=== PATIENT | female | born 1995 | race Caucasian/White ===

== ENCOUNTER 2017-01-29 06:18 | Emergency (ER) | payer BC ==
[2017-01-29 06:28] VITALS: TEMP 98.1
[2017-01-29] MEDS ORDERED: ERTAPENEM 1 GM in NS 100 ML IV ONE (06:37)
[2017-01-29] MEDS ORDERED: KETOROLAC 15 MG/1 ML SDV IVP ONE (06:49)
--- NOTE | 2017-01-29 06:53 | EDPHY ---
H & P Stated Complaint: R hand dog bite Time Seen by Provider: 01/29/17 06:32 HPI/ROS: HPI The patient presents with dog bite to right hand, sustained yesterday. This is an unknown dog that became aggressive with her and bit her several times to her right hand. She went to [facility], a 1 and 0.5 cm wound in between her thumb and index finger was sutured. She was started on Augmentin and has had 1 dose. She slept overnight however awoke this morning with worsening pain of her right hand. The pain is achy, constant, moderate in severity. She denies any fevers or chills. REVIEW OF SYSTEMS Constitutional: No fever, no chills. Eyes: No discharge. ENT: No sore throat. Cardiovascular: No chest pain, no palpitations. Respiratory: No cough, no shortness of breath. Gastrointestinal: No abdominal pain, no vomiting. Genitourinary: No hematuria. Musculoskeletal: No back pain. Skin: No rashes. Neurological: No headache. PMHx: Healthy PHYSICAL General Appearance: Alert, anxious and upset Eyes: Pupils equal and round no pallor or injection ENT, Mouth: Mucous membranes moist Respiratory: Breathing comfortably Neurological: A&O, moves all extremities Skin: Warm and dry, no rashes Musculoskeletal: Neck is supple non tender Extremities: Right hand with 1.5 cm laceration on the dorsal aspect between the 1st and 2nd digits with 4 simple interrupted sutures in place with surrounding erythema, warmth, tenderness, measuring about 4 cm in diameter, there is a 2nd superficial laceration between the 3rd and 4th digits in the web space with small amount of erythema, there are no areas of fluctuance Psychiatric: Patient is oriented X 3, there is no agitation Source: Patient Exam Limitations: No limitations - Personal History LMP (Females 10-55): 22-28 Days Ago Current Tetanus/Diphtheria Vaccine: Unsure Current Tetanus Diphtheria and Acellular Pertussis (TDAP): Unsure - Medical/Surgical History Hx Asthma: No Hx Chronic Respiratory Disease: No Hx Diabetes: No Hx Cardiac Disease: No Hx Renal Disease: No Hx Cirrhosis: No Hx Alcoholism: No Hx HIV/AIDS: No Hx Splenectomy or Spleen Trauma: No Other PMH: Depression, anxiety, - Social History Smoking Status: Former smoker Constitutional: Initial Vital Signs Temperature (C) 36.7 C 01/29/17 06:25 Heart Rate 122 H 01/29/17 06:25 Respiratory Rate 22 H 01/29/17 06:25 Blood Pressure 123/75 H 01/29/17 06:25 O2 Sat (%) 97 01/29/17 06:25 O2 Delivery Mode Room Air Allergies/Adverse Reactions: No Known Allergies Allergy (Unverified 01/29/17 06:24) Home Medications: Medication Instructions Recorded Amox Tr/Potassium Clavulanate 01/29/17 Bcp 01/29/17 Lexapro 01/29/17 Medical Decision Making Differential Diagnosis: 21-year-old female who sustained a dog bite to her right hand yesterday and was subsequently seen at urgent care with laceration repair with sutures now presents with redness and swelling of her right hand. There is no area of fluctuance. In the emergency department, sutures were removed, I was unable to express any pus under this sutures. She was given a dose of ertapenem as well as Toradol for pain. We circled the area of redness. I have advised that she continue taking the Augmentin as prescribed. I have given her follow-up with the hand surgeon for recheck in 1-2 days. I feel she likely has a cellulitis of her hand without any abscess. He did consider flexor tenosynovitis, however this is on the dorsal aspect of her hand. - Data Points Medications Given: Discontinued Medications Ketorolac Tromethamine (Toradol) 15 mg IVP EDNOW ONE Stop: 01/29/17 06:50 Last Admin: 01/29/17 06:52 Dose: 15 mg Departure - Departure Disposition: Home, Routine, Self-Care Clinical Impression: Dog bite of left hand with infection Qualifiers: Encounter type: initial encounter Qualified Code(s): S61.452A - Open bite of left hand, initial encounter Condition: Good Instructions: Animal Bite (ED), Cellulitis (ED) Additional Instructions: Please use elevation, and ice to help with pain. You can take ibuprofen 400 mg with acetaminophen 650 mg every 6 hours as needed for pain. Please continue to take your Augmentin as prescribed. I have given you information for follow up with the hand specialist if you would like to be re-evaluated. You need to return to the emergency department if the redness spreads any further or you develop a fever or worsening pain. Referrals: Gamaliel Mathias MD [Medical Doctor] - As per Instructions
[2017-01-29] MEDS ORDERED: ONDANSETRON 4 MG/2 ML VIAL IVP ONE (07:11)
[2017-01-29] MEDS ORDERED: HYDROCOD/APAP 5/325 PREPACK#6 BTL TAKEHOME ONE (07:21)
[2017-01-29 07:32] VITALS: BP 130/83; PULSE 77; RESP 18; O2SAT 94
== END 2017-01-29 07:59 | disposition home or self-care (01) ==
DX: S61.452A Open bite of left hand, initial encounter (principal); W54.0XXA Bitten by dog, initial encounter; Z87.891 Personal history of nicotine dependence
CPT/HCPCS: 96365; J1335; J1885; J2405

== ENCOUNTER 2017-02-08 22:26 | Emergency (ER) | payer BC ==
[2017-02-08 22:38] VITALS: TEMP 98.2
[2017-02-08] MEDS ORDERED: ONDANSETRON 4 MG/2 ML VIAL IVP ONE (22:45)
[2017-02-08] MEDS ORDERED: NS 1,000 ML IV ONE (22:45)
--- NOTE | 2017-02-08 22:49 | EDPHY ---
H & P Stated Complaint: N/V/D Time Seen by Provider: 02/08/17 22:37 HPI/ROS: HPI The patient presents with nausea, vomiting, diarrhea which began at about 5:00 p.m. tonight somewhat suddenly. She has said she has had about 20 episodes of nonbloody emesis and about 10 episodes of watery diarrhea. She feels very dehydrated current Jose. Her symptoms have been constant. She is feeling mild abdominal pain. She denies any sick contacts. She was able to snowboard earlier today. Of note I saw her in the emergency department about a week and half ago for a dog bite which was infected. She had follow-up with Hand surgery and they did a debridement in the office. She has just finished a course of Augmentin today.. REVIEW OF SYSTEMS Constitutional: No fever, no chills. Eyes: No discharge. ENT: No sore throat. Cardiovascular: No chest pain, no palpitations. Respiratory: No cough, no shortness of breath. Gastrointestinal: See HPI Genitourinary: No hematuria. Musculoskeletal: No back pain. Skin: No rashes. Neurological: No headache. PMHx: Recent infected dog bite Soc Hx: College student PHYSICAL General Appearance: Alert, hyperventilating and anxious Eyes: Pupils equal and round no pallor or injection ENT, Mouth: Mucous membranes dry Respiratory: There are no retractions, lungs are clear to auscultation Cardiovascular: Regular rate and rhythm Gastrointestinal: Abdomen is soft and non-tender, no masses, bowel sounds normal Neurological: A&O, moves all extremities Skin: Warm and dry, no rashes Musculoskeletal: Neck is supple non tender Extremities: symmetrical, full range of motion Psychiatric: Patient is oriented X 3, there is no agitation Source: Patient Exam Limitations: No limitations - Personal History LMP (Females 10-55): 1-7 Days Ago Current Tetanus/Diphtheria Vaccine: Yes Current Tetanus Diphtheria and Acellular Pertussis (TDAP): Yes - Medical/Surgical History Hx Asthma: No Hx Chronic Respiratory Disease: No Hx Diabetes: No Hx Cardiac Disease: No Hx Renal Disease: No Hx Cirrhosis: No Hx Alcoholism: No Hx HIV/AIDS: No Hx Splenectomy or Spleen Trauma: No Other PMH: Depression, anxiety, - Social History Smoking Status: Former smoker Constitutional: Initial Vital Signs Temperature (C) 36.8 C 02/08/17 22:28 Heart Rate 101 H 02/08/17 22:28 Respiratory Rate 26 H 02/08/17 22:28 Blood Pressure 101/78 02/08/17 22:28 O2 Sat (%) 98 02/08/17 22:28 O2 Delivery Mode Room Air Allergies/Adverse Reactions: No Known Allergies Allergy (Unverified 01/29/17 06:24) Home Medications: Medication Instructions Recorded Amox Tr/Potassium Clavulanate 01/29/17 Bcp 01/29/17 Lexapro 01/29/17 Ondansetron Odt [Zofran Odt 4 mg 4 mg PO Q4 PRN #10 tab 02/09/17 (*)] Medical Decision Making Differential Diagnosis: This is a 21-year-old female who presents with several hours of nausea, vomiting , diarrhea. On exam, she is quite anxious and hyperventilating, she does have dry mucous membranes which raises suspicion for dehydration. Differential diagnosis includes toxin mediated enterocolitis, viral gastroenteritis, gastritis. In the emergency department, patient was given 2 L of IV fluids, Zofran, Ativan for vomiting. She had resolution of her symptoms and was able to tolerate fluids by mouth. Labs were checked and were relatively unremarkable. She will be discharged home, I feel she likely has a viral or toxin mediated illness. - Data Points Laboratory Results: Laboratory Results 02/08/17 22:52 02/08/17 22:52 02/08/17 02/08/17 22:52 22:52 WBC 17.37 10^3/uL H 10^3/uL (3.80-9.50) RBC 5.03 10^6/uL 10^6/uL (4.18-5.33) Hgb 14.9 g/dL g/dL (12.6-16.3) Hct 41.5 % % (38.0-47.0) MCV 82.5 fL fL (81.5-99.8) MCH 29.6 pg pg (27.9-34.1) MCHC 35.9 g/dL g/dL (32.4-36.7) RDW 12.3 % % (11.5-15.2) Plt Count 333 10^3/uL 10^3/uL (150-400) MPV 9.0 fL fL (8.7-11.7) Neut % (Auto) 76.3 % H % (39.3-74.2) Lymph % (Auto) 16.5 % % (15.0-45.0) [place] % (Auto) 6.7 % % (4.5-13.0) Eos % (Auto) 0.1 % L % (0.6-7.6) Baso % (Auto) 0.1 % L % (0.3-1.7) Nucleat RBC Rel Count 0.0 % % (0.0-0.2) Absolute Neuts (auto) 13.24 10^3/uL H 10^3/uL (1.70-6.50) Absolute Lymphs (auto) 2.86 10^3/uL 10^3/uL (1.00-3.00) Absolute Monos (auto) 1.17 10^3/uL H 10^3/uL (0.30-0.80) Absolute Eos (auto) 0.02 10^3/uL L 10^3/uL (0.03-0.40) Absolute Basos (auto) 0.02 10^3/uL 10^3/uL (0.02-0.10) Absolute Nucleated RBC 0.00 10^3/uL 10^3/uL (0-0.01) Immature Gran % 0.3 % % (0.0-1.1) Immature Gran # 0.06 10^3/uL 10^3/uL (0.00-0.10) Sodium 139 mEq/L mEq/L (134-144) Potassium 3.4 mEq/L L mEq/L (3.5-5.2) Chloride 103 mEq/L mEq/L (97-110) Carbon Dioxide 21 mEq/l L mEq/l (22-31) Anion Gap 15 mEq/L mEq/L (8-16) BUN 11 mg/dL mg/dL (7-23) Creatinine 0.7 mg/dL mg/dL (0.6-1.0) Estimated GFR > 60 Glucose 107 mg/dL H mg/dL (70-100) Calcium 10.1 mg/dL mg/dL (8.5-10.4) Total Bilirubin 0.4 mg/dL mg/dL (0.1-1.4) Conjugated Bilirubin 0.0 mg/dL mg/dL (0.0-0.5) Unconjugated Bilirubin 0.4 mg/dL mg/dL (0.0-1.1) AST 31 IU/L IU/L (14-46) ALT 42 IU/L IU/L (9-52) Alkaline Phosphatase 68 IU/L IU/L (38-126) Total Protein 7.4 g/dL g/dL (6.3-8.2) Albumin 4.6 g/dL g/dL (3.5-5.0) Medications Given: Discontinued Medications Sodium Chloride (Ns) 1,000 mls @ 0 mls/hr IV EDNOW ONE; Wide Open PRN Reason: Protocol Stop: 02/08/17 22:46 Last Admin: 02/08/17 22:50 Dose: 1,000 mls Loperamide HCl (Imodium) 2 mg PO EDNOW ONE Stop: 02/09/17 01:40 Last Admin: 02/09/17 01:40 Dose: 2 mg Lorazepam (Ativan Injection) 0.5 mg IVP EDNOW ONE Stop: 02/08/17 23:25 Last Admin: 02/08/17 23:27 Dose: 0.5 mg Ondansetron HCl (Zofran) 4 mg IVP EDNOW ONE Stop: 02/08/17 22:46 Last Admin: 02/08/17 22:51 Dose: 4 mg Ondansetron HCl (Zofran Odt 4 Mg Prepack#2) 1 btl TAKEHOME EDNOW ONE Stop: 02/09/17 00:59 Last Admin: 02/09/17 01:08 Dose: 1 btl Departure - Departure Disposition: Home, Routine, Self-Care Clinical Impression: Nausea vomiting and diarrhea Condition: Good Instructions: Dehydration (ED), Acute Diarrhea (ED) Additional Instructions: Please make sure to drink plenty of fluids. You can return to the emergency department if your worse in any way. Referrals: Carrie Veronica MD [Medical Doctor] - As per Instructions Prescriptions: Ondansetron Odt [Zofran Odt 4 mg (*)] 4 mg PO Q4 PRN #10 tab PRN Reason: Nausea/Vomiting, Can'T Take Po
[2017-02-08 22:58] LABS: % IMMATURE GRANULYOCYTES 0.3 % (0.0-1.1); ABSOLUTE IMMATURE GRANULOCYTES 0.06 10^3/uL (0.00-0.10); ADD DIFF? NO; ADD MORPH? NO; ADD SCAN? NO; ATYPICAL LYMPHOCYTE FLAG 10 (0-99); FRAGMENT RBC FLAG 0 (0-99); HEMATOCRIT 41.5 % (38.0-47.0); HEMOGLOBIN 14.9 g/dL (12.6-16.3); LEFT SHIFT FLG 0 (0-99); LIPEMIA HEMOLYSIS FLAG 90 (0-99); MEAN CELL HEMOGLOBIN 29.6 pg (27.9-34.1); MEAN CELL HEMOGLOBIN CONCENTR. 35.9 g/dL (32.4-36.7); MEAN CELL VOLUME 82.5 fL (81.5-99.8); PLATELET CLUMPS FLAG 10 (0-99); PLATELET COUNT 333 10^3/uL (150-400); RED BLOOD CELL COUNT 5.03 10^6/uL (4.18-5.33); RED CELL DISTRIBUTION WIDTH 12.3 % (11.5-15.2)
[2017-02-08 23:10] LABS: ALANINE AMINOTRANSFERASE 42 IU/L (9-52); ALBUMIN 4.6 g/dL (3.5-5.0); ALKALINE PHOSPHATASE 68 IU/L (38-126); ANION GAP 15 mEq/L (8-16); ASPARTATE AMINOTRANSFERASE 31 IU/L (14-46); BILIRUBIN,TOTAL 0.4 mg/dL (0.1-1.4); BILIRUBIN-UNCONJUGATED 0.4 mg/dL (0.0-1.1); CALCIUM 10.1 mg/dL (8.5-10.4); CARBON DIOXIDE 21 mEq/l (22-31); CHLORIDE 103 mEq/L (97-110); CREATININE 0.7 mg/dL (0.6-1.0); GLOMERULAR FILTRATION RATE > 60; GLUCOSE 107 mg/dL (70-100); POTASSIUM 3.4 mEq/L (3.5-5.2); SODIUM 139 mEq/L (134-144); TOTAL PROTEIN 7.4 g/dL (6.3-8.2)
[2017-02-08] MEDS ORDERED: LORazepam 2 MG/ML INJ IVP ONE (23:24)
[2017-02-08 23:54] VITALS: PULSE 76; RESP 18
[2017-02-09] MEDS ORDERED: ONDANSETRON 4MG PREPACK#2 BTL TAKEHOME ONE (00:58)
[2017-02-09] MEDS ORDERED: LOPERAMIDE HCL 2 MG CAP ONE (01:38)
[2017-02-09] MEDS ORDERED: LOPERAMIDE HCL 2 MG CAP PO ONE (01:39)
[2017-02-09 02:53] VITALS: BP 120/78; O2SAT 96
== END 2017-02-09 01:50 | disposition home or self-care (01) ==
PROC: 3E0337Z Introduction of Electrolytic and Water Balance Substance into Peripheral Vein, Percutaneous Approach (ICD-10-PCS; principal; 2017-02-08)
DX: R11.2 Nausea with vomiting, unspecified (principal); R19.7 Diarrhea, unspecified; E86.9 Volume depletion, unspecified; Z87.891 Personal history of nicotine dependence
CPT/HCPCS: 96374; J2060; J2405